=== PATIENT | male | born 1990 | race Caucasian/White ===

== ENCOUNTER 2019-01-25 15:39 | Emergency (ER) | payer SELFPAY ==
[2019-01-25] MEDS ORDERED: AMOXICILLIN TR/POT CLAVULANATE 500-125 MG TAB PO ONE (15:48)
[2019-01-25] MEDS ORDERED: DIPH/PERTUSS(ACELL)/TETANUS VAC/PF 0.5 ML SYR (>=10YO) IM ONE (15:48)
[2019-01-25] MEDS ORDERED: AMOXICILLIN TRIHYD 250 MG CAPSULE PO ONE (15:48)
--- NOTE | 2019-01-25 15:50 | ER Document Report ---
ED Medical Screen (RME) - General Chief Complaint: Dog Bite Stated Complaint: DOG BITE Time Seen by Provider: 01/25/19 15:45 Mode of Arrival: Ambulatory Information source: Patient Notes: Patient reports being attacked by a stray dog today. Animal control was unable to locate the animal. Patient with a dog bite to the right wrist and occipital scalp area. I have greeted and performed a rapid initial assessment of this patient. A comprehensive ED assessment and evaluation of the patient, analysis of test results and completion of the medical decision making process will be conducted by additional ED providers. Physical Exam - Vital signs Vitals: Temp Pulse Resp BP Pulse Ox 98.0 F 97 16 133/85 H 99 01/25/19 15:45 01/25/19 15:45 01/25/19 15:45 01/25/19 15:45 01/25/19 15:45 - General General appearance: Appears well, Alert Notes: Abrasions and laceration to right wrist area and occipital scalp Course - Vital Signs Vital signs: Temp Pulse Resp BP Pulse Ox 98.0 F 97 16 133/85 H 99 01/25/19 15:45 01/25/19 15:45 01/25/19 15:45 01/25/19 15:45 01/25/19 15:45
--- NOTE | 2019-01-25 17:23 | ER Document Report ---
HPI - HPI Time Seen by Provider: 01/25/19 15:45 Pain Level: 0 Context: Patient is a 28-year-old male presents to the emergency department with chief complaint of dog bite. Patient reports around 9 AM he was putting a stray dog outside of his home when it attacked him. Patient reports he did bite the back of his head as well as his right wrist. Patient states animal control was contacted but they have not been able to locate the dog. Patient reports this was not provoked as he was playing with the dog. Patient reports the dog was acting normal until it bit him. Patient is unsure when his last tetanus shot was. Patient denies fever. - REPRODUCTIVE Reproductive: DENIES: : Past Medical History - General Information source: Patient - Social History Smoking Status: Current Every Day Smoker Frequency of alcohol use: Occasional Lives with: Spouse/Significant other Family History: None Patient has suicidal ideation: No Patient has homicidal ideation: No - Past Medical History Cardiac Medical History: Reports: None Pulmonary Medical History: Reports: None EENT Medical History: Reports: None Neurological Medical History: Reports: None Endocrine Medical History: Reports: None Renal/ Medical History: Reports: None Malignancy Medical History: Reports None GI Medical History: Reports: None Musculoskeletal Medical History: Reports None Skin Medical History: Reports None Psychiatric Medical History: Reports: None Traumatic Medical History: Reports: None Infectious Medical History: Reports: None Surgical Hx: Negative Vertical Provider Document - CONSTITUTIONAL Agree With Documented VS: Yes Exam Limitations: No Limitations General Appearance: No Apparent Distress - INFECTION CONTROL TRAVEL OUTSIDE OF THE [place] IN LAST 30 DAYS: No - HEENT HEENT: Normocephalic, PERRLA - NECK Neck: Normal Inspection - RESPIRATORY Respiratory: Breath Sounds Normal, No Respiratory Distress - CARDIOVASCULAR Cardiovascular: Regular Rate, Regular Rhythm - MUSCULOSKELETAL/EXTREMETIES Notes: Patient has a puncture wound to the ventral aspect of the right forearm. 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 There is no erythema, there is scattered multiple abrasions. No active bleeding. Patient has multiple lacerations that appear to be superficial to the back of th e head near the occipital area. There is no active bleeding. - NEURO Level of Consciousness: Awake, Alert, Appropriate - DERM Integumentary: Warm Course - Re-evaluation Re-evalutation: 01/25/19 17:20 Patient refusing x-ray of the right wrist. Patient does have multiple abrasions and a puncture wound to the ventral aspect of the right forearm. Due to the fact that the patient does not know the dog or his immunization status we highly recommended rabies immunoglobulin as well as the vaccine. I did inform the patient that if he does not receive this in the dog does have rabies he can from this. Patient states he would like to be given some time to speak with his significant other regarding this. Instructed to keep the wounds clean and dry. Strict return precautions given. Patient's Tdap was updated. 01/25/19 18:29 Patient was given the rabies immunoglobulin and vaccine prior to discharge. Patient did refuse to have the immunoglobulin injected in his wounds. - Vital Signs Vital signs: Temp Pulse Resp BP Pulse Ox 98.0 F 97 16 133/85 H 99 01/25/19 15:45 01/25/19 15:45 01/25/19 15:45 01/25/19 15:45 01/25/19 15:45 Discharge - Discharge Clinical Impression: Dog bite Qualifiers: Encounter type: initial encounter Qualified Code(s): W54.0XXA - Bitten by dog, initial encounter Condition: Stable Disposition: HOME, SELF-CARE Additional Instructions: Today you are seen in the emergency department for a dog bite. Your tetanus shot has been updated. We did offer an x-ray of the right wrist to rule out foreign body or a bony abnormality such as a fracture dislocation but you have politely declined this. You are being placed on oral antibiotics to prevent infection. Animal bites are heavily contaminated with bacteria and have a high risk of getting infected. Please take your antibiotics for its full 10-day course. If you develop a fever, redness or drainage around the site or any worsening of signs or symptoms please return to the emergency department. Ple ase take Tylenol and ibuprofen as needed for pain. Three-view prophylaxis was given to you while here in the emergency department. Patient has been given to you to tell you when you need to return to the emergency department for your rabies vaccine. You do need to return at day 3, day 7 and day 14. It is very important that you do return for these vaccines as you can from the rabies virus. Animal Bites Animal bites are often heavily contaminated with bacteria. In spite of thorough cleansing and proper treatment, these wounds frequently become infected . Bite wounds of the hands are especially prone to complications. Bites are dressed, if possible. Large wounds may require suturing after internal cleansing. Because of infection risk, some large wounds must remain unstitched. Your doctor is trained to advise you on the best treatment for your bite. Call the doctor at once if the wound becomes red, swollen, warm, increasingly painful, or if it begins to drain. Danger signs also include red streaks up the involved extremity, swollen glands in the groin or under the arm, or fever and chills. The risk of rabies from domestic animals is very low. Bats, sick animals, and wild animals may expose you to rabies. The physician, or the health department, will inform you if you will need to receive the rabies vaccine. Rabies prophylaxis Rabies immunization can prevent infection with the rabies virus. This virus is always fatal if it reaches the nervous system. Exposure to an infected animal's saliva requires a series of shots. If you're already immunized, you may need only a booster shot. It's critical for you to follow the exact schedule of immunizations. After the first shot, we give repeat doses in 3 days, 7 days, 14 days. The repeat doses can also be given through the Health Department or by special arrangement with your doctor. Ibuprofen or acetaminophen can be used for aching and swelling at the injection site. Call the doctor or return if you develop increasing pain, fever, chills, or spreading redness, or if you become short of breath or faint. Prescriptions: Amox Tr/Potassium Clavulanate [Augmentin 875-125 Tablet] 1 tab PO BID 10 Days #20 tablet
[2019-01-25] MEDS ORDERED: RABIES VACCINE (PCEC)/PF 2.5 UNIT/1 ML KIT IM ONE (17:35)
[2019-01-25] MEDS ORDERED: RABIES IMMUNE GLOBULIN INJ/PF 300 UNIT/ML VIAL IM ONE (17:35)
[2019-01-25 18:20] VITALS: BP 138/78
== END 2019-01-25 18:24 | disposition home or self-care (01) ==
LOC: ER 15:39
DX: S01.95XA Open bite of unspecified part of head, initial encounter (principal); S61.551A Open bite of right wrist, initial encounter; W55.01XA Bitten by cat, initial encounter; F17.200 Nicotine dependence, unspecified, uncomplicated
CPT/HCPCS: 99283; 96372; 90471; 90715; 90675; 90376; J3490